=== PATIENT | male | born 1975 | race Native Hawaiian/Other Pacific Islander ===

== ENCOUNTER 2016-08-24 02:28 | Emergency (ER) | payer BC ==
[2016-08-24] MEDS: HYOSCYAMINE SULFATE 0.125 MG TAB.SUBL SL SCH (03:25)
[2016-08-24 03:47] LABS: BASOPHILS % 0.9 (0.0-1.5); EOSINOPHILS % 3.6 % (0.0-6.8); MEAN CORPUSCULAR HEMOGLOBIN 30.2 pg (28.0-34.0); MEAN CORPUSCULAR VOLUME 87.6 fl (80.0-100.0); MONOCYTES % 6.2 % (0.0-11.0); NEUTROPHILS # 4.2 # k/uL (1.4-7.7)
[2016-08-24 03:50] LABS: eGFR (African) > 60; eGFR (Non-African) > 60
[2016-08-24 05:19] VITALS: BP 120/68
--- NOTE | 2016-08-24 05:21 | ED Physician Documentation ---
Abdominal Pain - HPI Stated Complaint: RUQ Pain Chief Complaint: Abdominal Pain Additonal Information: abdominal pain, sharp, recurrent, episodic over last 2 days, bloated, passing gas above and below, no vomiting or diarrhea Onset: days ago (2) Duration: waxing, waning, sudden-onset Timing: better Context: bad food (?). denies: out of country travel, recent trauma Severity: moderate Quality: stabbing Front/Back of Body, Lg (Color): 1 - pain Associated Symptoms: other (bloating, gas) Exacerbated by: nothing Relieved by: other (possibly pepto bismol) Further Comments: no - ROS CONST: no problems GI/: denies: constipation, black stools, bloody urine, bloody stools, dark urine, problems urinating CVS/RESP: none EYES/ENT: none MS/SKIN/LYMPH: none NEURO/PSYCH: none - SOCIAL HX Smoking History: non-smoker Alcohol Use: none Drug Use: none - FAMILY HX Family History: no significant history - PAST HX Past History: none Ischemic Bowel Risk Factors: none Other History: none Surgeries/Procedures: none Immunizations: referred to PCP Home Medications: Ambulatory Orders Medication Instructions Recorded NK [NK] 08/24/16 Allergies/Adverse Reactions: Allergies Allergy/AdvReac Type Severity Reaction Status Date / Time No Known Allergies Allergy Unverified 08/24/16 02:47 - VITAL SIGNS Vital Signs: Vital Signs Temp Pulse Resp BP Pulse Ox 97 F L 73 18 146/99 99 08/24/16 02:30 08/24/16 02:30 08/24/16 02:30 08/24/16 02:30 08/24/16 02:30 - REVIEWED ASSESSMENTS Nursing Assessment Reviewed: Yes Vitals Reviewed: Yes Progress - Results/Orders Results/Orders: cbc, cmp, amylase, ct abdomen and pelvis ordered - Progress Progress: Pt. given 0.25 mg hyoscyamine p.o. in er with resolution of abd. pain. Critical Care Note - Critical Care Note Total Time (mins): 0 ED Results Lab/Radiology - Lab Results Lab Results: Lab Results 08/24/16 08/24/16 03:25 03:20 WBC 7.30 K/ul K/ul (4.00-12.00) RBC 4.87 M/ul M/ul (3.90-5.20) Hgb 14.7 g/dL g/dL (12.0-18.0) Hct 42.7 % % (37.0-53.0) MCV 87.6 fl fl (80.0-100.0) MCH 30.2 pg pg (28.0-34.0) MCHC 34.5 g/dL g/dL (30.0-36.0) RDW 12.6 % % (11.3-14.3) Plt Count 312 K/mm3 K/mm3 (130-400) Neut % (Auto) 57.0 % % (39.0-79.0) Lymph % (Auto) 30.7 % % (16.0-50.0) Nicholas % (Auto) 6.2 % % (0.0-11.0) Eos % (Auto) 3.6 % % (0.0-6.8) Baso % (Auto) 0.9 (0.0-1.5) Neut # (Auto) 4.2 # k/uL # k/uL (1.4-7.7) Lymph # (Auto) 2.2 # k/uL # k/uL (0.6-4.0) Nicholas # (Auto) 0.4 # k/uL # k/uL (0.0-0.9) Eos # (Auto) 0.3 # k/uL # k/uL (0.0-0.6) Baso # (Auto) 0.1 # k/uL # k/uL (0.0-0.5) Reactive Lymphs % 1.6 % % (0.0-5.0) Reactive Lymphs # 0.1 # k/uL # k/uL (0.0-0.8) Sodium 144 mmol/L mmol/L (136-145) Potassium 3.8 mmol/L mmol/L (3.5-5.0) Chloride 108 mmol/L mmol/L (98-110) Carbon Dioxide 32 mmol/L mmol/L (20-32) BUN 16 mg/dL mg/dL (10-26) Creatinine 1.0 mg/dL mg/dL (0.4-1.5) Estimated Creat Clear 112 Est GFR ( Amer) > 60 (60 - ) Est GFR (Non-Af Amer) > 60 (60 - ) Glucose 128 mg/dL H mg/dL (70-99) Calcium 9.7 mg/dL mg/dL (8.5-10.5) Total Bilirubin 0.5 mg/dL mg/dL (0.2-1.2) AST 19 U/L U/L (0-41) ALT 25 U/L U/L (0-45) Alkaline Phosphatase 86 U/L U/L (46-116) Total Protein 7.3 g/dL g/dL (6.0-8.5) Albumin 4.4 g/dL g/dL (3.0-5.5) Amylase 70 U/L U/L (20-104) - Radiology Radiology Impressions: ct shows iliitis with no bowel obstruction - Orders Orders: ED Orders Category Date Time Status Place IV Lock 1T Care 08/24/16 03:[address] ABD & PELVIS W/O CON Stat Exams 08/24/16 Taken AMYLASE Routine Lab 08/24/16 03:20 Completed CBC/PLATELET/DIFF Urgent Lab 08/24/16 03:25 Completed CMP Routine Lab 08/24/16 03:20 Completed Hyoscyamine Sulfate [Oscimin Sl] Med 08/24/16 03:22 Ordered 0.25 mg SL 1T Abdominal Pain Physical Exam - Physical Exam General Appearance: alert, moderate distress EENT: eye inspection normal, ENT inspection normal, pharynx normal, no signs of dehydration, ANEUDY, no nystagmus, TM's nml NECK: normal inspection, thyroid normal, supple RESPIRATORY: no resp distress, chest non-tender, breath sounds normal CVS: reg rate & rhythm, heart sounds normal, equal pulses, no murmur, no gallop , PMI nml, no JVD, no friction rub ABDOMEN: soft, normal bowel sounds, other (positive Jacques's sign) BACK: normal inspection, no CVA tenderness SKIN: warm/dry, normal color EXTREMITIES: non-tender, normal range of motion, no evidence of injury, no edema NEURO: oriented X3, CN's nml as tested Vital Signs: Vital Signs Temp Pulse Resp BP Pulse Ox 97 F L 73 18 146/99 99 08/24/16 02:30 08/24/16 02:30 08/24/16 02:30 08/24/16 02:30 08/24/16 02:30 Discharge Clincal Impression: Gastroenteritis Referrals: Primary Doctor,No [Primary Care Provider] - 2 Days Home Medications: Ambulatory Orders NK [NK] 08/24/16 Comments: Discharged in stable and improved condition with script for Hyoscyamine 1 pill ac and hs #10, generic, no refill. Condition: Stable Disposition: 01 HOME, SELF-CARE Decision to Admit: NO Decision Time: 05:00
--- NOTE | 2016-08-24 05:42 | Diagnostic Imaging Report ---
CHEMA COMER~ [facility] [id number] [facility] [address] [place], [place]. [address] ~ ~ ~ ~ Report Submission Date: Aug 24, 2016 4:27:31 AM CDT Patient ~ Study Name: SEKOU GOMEZ ~ Date: Aug 24, 2016 3:48:51 AM CDT ~ Modality Type: CT\SR Gender: M ~ Description: CT ABD & PELVIS W/O CO : 75 ~ Institution: [facility] Physician: CHEMA COMER ~ ~ ~ ~ Examination: CT Abdomen/pelvis History: Right upper quadrant discomfort Comparison exams: None available Technique: CT Abdomen/pelvis without contrast protocol.~ Findings: Liver, spleen, adrenal glands, kidneys, pancreas and gallbladder are without irregularity.~ No suspicious calcifications involving the kidneys are ureters bilaterally. Abdominal aorta a without abnormal dilation. ~Bowel without contrast limiting evaluation. Mid abdominal small bowel demonstrates mucosal thickening associated with air fluid levels. No abnormal dilation. Stool throughout the large bowel limiting sensitivity. No evidence for acute mesenteric inflammation or free air. Osseous structures demonstrate degenerative changes. Lung bases without infiltrate. Impression: Mid abdominal small bowel wall thickening and air fluid levels. No abnormal dilation. Findings suggest component of ileitis. No evidence for obstruction at this time. ~ Electronically signed on Aug 24, 2016 4:27:31 AM CDT by: Bertin BRANDT
== END 2016-08-24 05:10 | disposition home or self-care (01) ==
LOC: ED 02:28
DX: K52.9 Noninfective gastroenteritis and colitis, unspecified (principal)
CPT/HCPCS: 74176; 80053; 82150; 85025; A9270; 99283; S1016